=== PATIENT | male | born 1975 | race American Indian/Alaskan Native ===

== ENCOUNTER 2017-08-27 23:29 | Emergency (ER) | payer SELFPAY ==
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
[2017-08-27 23:48] VITALS: BP 159/83
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
[2017-08-28] MEDS ORDERED: ZOFRAN IV ONE (00:36)
[2017-08-28] MEDS ORDERED: MORPHINE IV ONE (00:36)
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
== END 2017-08-28 02:31 | disposition home or self-care (01) ==
LOC: ED 23:29
DX: S01.81XA Laceration without foreign body of other part of head, initial encounter (principal); S00.83XA Contusion of other part of head, initial encounter; V49.49XA Driver injured in collision with other motor vehicles in traffic accident, initial encounter; Y93.89 Activity, other specified; Y92.89 Other specified places as the place of occurrence of the external cause; Y99.8 Other external cause status
CPT/HCPCS: 12002; 70450; 70486; 72125; 96374; 96375; 99284; J2270; J2405

== ENCOUNTER 2020-04-27 20:17 | Inpatient (IN) | payer OTHER ==
[2020-04-27] MEDS ORDERED: ACETAMINOPHEN 325 MG TAB ONE (20:29)
[2020-04-27] MEDS ORDERED: ACETAMINOPHEN 325 MG TAB PO ONE (20:30)
--- NOTE | 2020-04-27 20:31 | Event Note ---
ED Screening Note ED Screening Note: COVID 19 positive on apr 19 states began having chills and fever on 04/18/2020 no cough no SOB no CP no n/v/d +generalized body aches no abd pain PMHx none no allergies to meds non smoker no recent travel This initial assessment/diagnostic orders/clinical plan/treatment(s) is/are subject to change based on patients health status, clinical progression and re- assessment by fellow clinical providers in the ED. Further treatment and workup at subsequent clinical providers discretion. Patient/guardian urged not to elope from the ED as their condition may be serious if not clinically assessed and managed. Initial orders include: labs, CXR tylenol given
--- NOTE | 2020-04-27 20:54 | XRay Report ---
CHEST 2 VIEWS, 04/27/2020 8:45 PM INDICATION: Cough. Shortness of breath. COMPARISON: None FINDINGS: Support devices: None. Heart: The cardiac silhouette is normal in size. Lungs/pleura: There are patchy bilateral opacities within the mid and lower lung zones. Additional findings: No significant acute abnormality. IMPRESSION: 1. Patchy bilateral pulmonary opacities. Atypical infectious process should be considered. Signer Name: Sadaf Clay MD Signed: 04/27/2020 8:49 PM Workstation Name: [id number]
[2020-04-27] MEDS ORDERED: SODIUM CHLORIDE 0.9% 1000 ML IV SOLN IV ONE (20:55)
--- NOTE | 2020-04-27 21:05 | Emergency Department Report ---
ED Fever HPI - General Chief Complaint: Fever Stated Complaint: POS COVID/CHILLS/FEVER PUI?: Yes Time Seen by Provider: 04/27/20 20:45 Source: patient Exam Limitations: no limitations - History of Present Illness Initial Comments: Patient is a 45-year-old male that presents emergency room with complaints of cough, chills, body aches, fever, difficulty breathing and shortness of breath. Patient states his symptoms started April 19, 2020. Patient states he tested positive for COVID-19 on April 22, 2020. Patient stated he also feels fatigued. Patient states his shortness of breath is better with rest and worse with exertion. Patient states he has had fever since April 19 and will go down with Tylenol but come right back. Patient states he has had a decrease in his appetite. Patient denies nausea and vomiting. Patient denies diarrhea. Patient denies loss of smell. Patient denies loss of taste. Patient denies chest pain. Patient states he has no past medical history except for his taking a testosterone supplement. Patient denies international travel. 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 denies: wheezing Cardiovascular: denies: chest pain, palpitations Endocrine: no symptoms reported Gastrointestinal: denies: abdominal pain, nausea, diarrhea Genitourinary: denies: urgency, dysuria Musculoskeletal: denies: back pain, joint swelling, arthralgia Skin: denies: rash, lesions Neurological: denies: headache, weakness, paresthesias Psychiatric: denies: anxiety, depression Hematological/Lymphatic: denies: easy bleeding, easy bruising ED Past Medical Hx - Past Medical History Previous Medical History?: Yes Additional medical history: Low testosterone - Surgical History Past Surgical History?: Yes Additional Surgical History: left mcl reconstruction - Family History Family history: no significant - Social History Smoking Status: Never Smoker Substance Use Type: None - Medications Home Medications: Home Medications Medication Instructions Recorded Confirmed Last Taken Type Ciprofloxacin HCl [Cipro] 500 mg PO Q12H #20 tab 04/02/13 Unknown Rx Cyclobenzaprine [Flexeril 10 MG 10 mg PO TID PRN #30 tablet 08/28/17 Unknown Rx TAB] HYDROcodone/APAP 5-325 [[place] 1 each PO Q6HR PRN #20 tablet 08/28/17 Unknown Rx 5/325] Ibuprofen [Motrin 800 MG tab] 800 mg PO TID PRN #40 tablet 08/28/17 Unknown Rx ED Physical Exam - General Limitations: No Limitations General appearance: alert, in no apparent distress - Head Head exam: Present: atraumatic, normocephalic - Eye Eye exam: Present: normal appearance - ENT ENT exam: Present: mucous membranes moist - Neck Neck exam: Present: normal inspection - Respiratory Respiratory exam: Present: normal lung sounds bilaterally. Absent: respiratory distress - Cardiovascular Cardiovascular Exam: Present: regular rate, normal rhythm. Absent: systolic murmur, diastolic murmur, rubs, gallop - GI/Abdominal GI/Abdominal exam: Present: soft, normal bowel sounds - Rectal Rectal exam: Present: deferred - Extremities Exam Extremities exam: Present: normal inspection - Back Exam Back exam: Present: normal inspection - Neurological Exam Neurological exam: Present: alert, oriented X3 - Psychiatric Psychiatric exam: Present: normal affect, normal mood - Skin Skin exam: Present: warm, dry, intact, normal color. Absent: rash ED Course Vital Signs 04/27/20 04/27/20 04/27/20 20:22 21:00 22:27 Temperature 100.5 F H Pulse Rate 127 H 113 H 91 H Respiratory 16 19 17 Rate Blood Pressure 131/86 Blood Pressure 131/80 133/80 [Left] O2 Sat by Pulse 94 93 94 Oximetry - Reevaluation(s) Reevaluation #1: Patient is evaluation done. I reevaluated the patient and ambulated the patient with a pulse ox. Patient's oxygen saturation stayed between 90 and 93. Patient's resting oxygen saturation is 93. 04/27/20 21:08 Reevaluation #2: Patient's oxygen has decreased. Patient placed on oxygen. Patient's on 2 L saturation is 95% 04/27/20 21:35 Reevaluation #3: I discussed all results with patient. I discussed plan of care with patient. Patient agrees with plan of care and admission. Patient to be admitted to the hospitalist service. 04/27/20 21:50 - Consultations Consultation #1: Hospitalist consulted for admission. Hospitalist to admit patient. 04/27/20 21:50 ED Medical Decision Making - Lab Data Result diagrams: 04/27/20 20:55 04/27/20 21:11 - Radiology Data Radiology results: report reviewed, image reviewed CHEST 2 VIEWS, 04/27/2020 8:45 PM INDICATION: Cough. Shortness of breath. COMPARISON: None FINDINGS: Support devices: None. Heart: The cardiac silhouette is normal in size. Lungs/pleura: There are patchy bilateral opacities within the mid and lower lung zones. Additional findings: No significant acute abnormality. IMPRESSION: 1. Patchy bilateral pulmonary opacities. Atypical infectious process should be considered. - Medical Decision Making Patient is a 45-year-old male that presents emergency room with complaints of shortness of breath, cough, fever, chills, body aches for over 1 week. Patient was diagnosed with COVID-19 on April 22, 2020. An ambulatory sat was done in the ER upon initial evaluation and patient oxygen level ranged between 90 and 93. Later on in the ER stay the patient's oxygen actually dropped more and patient required 2 L of oxygen to maintain a sat above 93. Patient had a chest x-ray which shows bilateral pneumonia consistent with COVID-19. Patient had labs which essentially unremarkable except for elevated Covid panel and inflammatory markers. ID consulted for management of PUI and Covid. Patient will be admitted to the hospital service for further evaluation and treatment. - Differential Diagnosis Covid, fever, shortness of breath, hypoxia, respiratory failure, Critical Care Time: Yes Critical care time in (mins) excluding proc time.: 35 Critical care attestation.: If time is entered above; I have spent that time in minutes in the direct care of this critically ill patient, excluding procedure time. Critical Care Time: 35 minutes ED Disposition Clinical Impression: COVID-19, Hypoxia, SOB (shortness of breath) Pneumonia Qualifiers: Pneumonia type: due to unspecified organism Laterality: bilateral Lung location: unspecified part of lung Qualified Code(s): J18.9 - Pneumonia, unspecified organism Respiratory failure Qualifiers: Chronicity: acute Respiratory failure complication: hypoxia Qualified Code(s): J96.01 - Acute respiratory failure with hypoxia Disposition: 09 OP ADMIT IP TO THIS HOSP Is pt being admited?: Yes Does the pt Need Aspirin: No Condition: Critical Instructions: Bacterial Pneumonia (ED) Time of Disposition: 22:20
[2020-04-27] MEDS ORDERED: cefTRIAXone/NS 2 GM/100 ML 2 GM/100 ML BAG IV ONE (21:12)
[2020-04-27] MEDS ORDERED: dexAMETHasone 4 MG/ML VIAL IV ONE (21:12)
[2020-04-27 21:17] LABS: Basophils # (Auto) 0.1 K/mm3 (0.0-0.1); Basophils % (Auto) 0.5 % (0.0-1.8); Hematocrit 52.6 % (35.5-45.6); Hemoglobin 17.9 gm/dl (11.8-15.2); Lymphocytes # (Auto) 0.9 K/mm3 (1.2-5.4); Lymphocytes % (Auto) 8.7 % (13.4-35.0); Mean Corpuscular HGB Conc 34 % (32-34); Mean Corpuscular Volume 80 fl (84-94); Monocytes # (Auto) 0.7 K/mm3 (0.0-0.8); Monocytes % (Auto) 6.1 % (0.0-7.3); Platelet Count 283 K/mm3 (140-440); Red Blood Count 6.58 M/mm3 (3.65-5.03); Red Cell Distribution Width 13.4 % (13.2-15.2)
[2020-04-27 21:35] LABS: Albumin 3.8 g/dL (3.9-5); Calcium 8.5 mg/dL (8.4-10.2)
[2020-04-27] MEDS ORDERED: AZITHROMYCIN 500 MG in SODIUM CHLORIDE 0.9% 250ML 250 ML IV ONE (21:42)
[2020-04-27 21:56] LABS: C-Reactive Protein 9.6 mg/dL (0.00-1.30)
[2020-04-27] MEDS ORDERED: ACETAMINOPHEN 325 MG TAB PO PRN (22:34)
[2020-04-27] MEDS ORDERED: MAGNESIUM HYDROXIDE (MOM) ORAL LIQD UDC PO PRN (22:34)
[2020-04-27] MEDS ORDERED: ONDANSETRON 4 MG/2 ML INJ IV PRN (22:34)
[2020-04-27] MEDS ORDERED: MORPHINE 2 MG/1 ML INJ IV PRN (22:34)
[2020-04-27] MEDS ORDERED: SODIUM CHLORIDE 0.9% 1000 ML 1,000 ML IV SCH (22:45)
--- NOTE | 2020-04-27 22:45 | History and Physical Report ---
History of Present Illness Date of examination: 04/27/20 Date of admission: 04/27/2020 Chief complaint: Cough Fever Shortness of Breath History of present illness: 45-year-old male with no significant past medical history presents to the emergency room today complaining of cough, fever and chills, generalized body aches and pain and difficulty breathing. Symptoms have been ongoing for about 10 days. Patient indicates that he tested positive for COVID-19 on April 22, 2020 and since then he has been feeling fatigued and has been having intermittent fever. He has taken some Tylenol which helps with the fever for a brief period of time. He has had decreased appetite but denies any nausea vomiting and no diarrhea denies any loss of smell, no abdominal pain. Patient denies any sick contacts and no recent travel. Patient denies any contact with anyone with COVID-19. Upon arrival in the emergency room patient was hypoxic. Evaluation in the emergency room today chest x-ray shows bilateral infiltrates. Patient being admitted for pneumonia and will rule out COVID-19. Past History Past Medical History: other (Low testosterone) Past Surgical History: Other (Left MCL reconstruction) Social history: no significant social history Family history: no significant family history Medications and Allergies Allergies Allergy/AdvReac Type Severity Reaction Status Date / Time No Known Allergies Allergy Verified 08/27/17 23:45 Home Medications Medication Instructions Recorded Confirmed Last Taken Type Ciprofloxacin HCl [Cipro] 500 mg PO Q12H #20 tab 04/02/13 Unknown Rx Cyclobenzaprine [Flexeril 10 MG 10 mg PO TID PRN #30 tablet 08/28/17 Unknown Rx TAB] HYDROcodone/APAP 5-325 [[place] 1 each PO Q6HR PRN #20 tablet 08/28/17 Unknown Rx 5/325] Ibuprofen [Motrin 800 MG tab] 800 mg PO TID PRN #40 tablet 08/28/17 Unknown Rx Active Meds: Active Medications Acetaminophen (Acetaminophen 325 Mg Tab) 650 mg PO Q4H PRN PRN Reason: Pain MILD(1-3)/Fever >100.5/MCKEON Enoxaparin Sodium (Enoxaparin 40 Mg/0.4 Ml Inj) 40 mg SUB-Q QDAY@2200 MATILDA; Protocol Azithromycin 500 mg/ Sodium (Chloride) 250 mls @ 250 mls/hr IV ONCE ONE; Protocol Stop: 04/27/20 22:41 Last Admin: 04/27/20 22:15 Dose: 250 mls/hr Documented by: Sodium Chloride (Nacl 0.9% 1000 Ml) 1,000 mls @ 75 mls/hr IV DIRECT MATILDA Ceftriaxone Sodium (Rocephin/Ns 2 Gm/100 Ml) 2 gm in 100 mls @ 200 mls/hr IV Q24H MATILDA; Protocol Azithromycin 500 mg/ Sodium (Chloride) 250 mls @ 250 mls/hr IV Q24H MATILDA; Protocol Sodium Chloride (Nacl 0.9% 1000 Ml) 1,000 mls @ 75 mls/hr IV DIRECT MATILDA Magnesium Hydroxide (Magnesium Hydroxide (Mom) Oral Liqd Udc) 30 ml PO Q4H PRN PRN Reason: Constipation Morphine Sulfate (Morphine 2 Mg/1 Ml Inj) 2 mg IV Q4H PRN PRN Reason: Pain, Moderate (4-6) Ondansetron HCl (Ondansetron 4 Mg/2 Ml Inj) 4 mg IV Q8H PRN PRN Reason: Nausea And Vomiting Sodium Chloride (Sodium Chloride 0.9% 10 Ml Flush Syringe) 10 ml IV BID MATILDA Sodium Chloride (Sodium Chloride 0.9% 10 Ml Flush Syringe) 10 ml IV PRN PRN PRN Reason: LINE FLUSH Review of Systems Constitutional: fever, chills, malaise Ears, nose, mouth and throat: no nasal congestion, no sore throat Cardiovascular: no chest pain, no palpitations Respiratory: cough, shortness of breath Gastrointestinal: no abdominal pain, no nausea, no vomiting, no diarrhea Genitourinary Male: no dysuria, no hematuria, no nocturia Musculoskeletal: no neck pain, no low back pain Integumentary: no rash, no pruritis Neurological: no headaches, no confusion Psychiatric: no anxiety, no depression Exam - Constitutional Vitals: Temp Pulse Resp BP Pulse Ox 100.5 F H 91 H 17 133/80 94 04/27/20 20:22 04/27/20 22:27 04/27/20 22:27 04/27/20 22:27 04/27/20 22:27 General appearance: Present: no acute distress, well-nourished - EENT Eyes: Present: PERRL, EOM intact. Absent: scleral icterus ENT: hearing intact, clear oral mucosa, dentition normal - Neck Neck: Present: supple, normal ROM - Respiratory Respiratory effort: normal Respiratory: bilateral: diminished - Cardiovascular Rhythm: regular Heart Sounds: Present: S1 & S2. Absent: gallop, systolic murmur, diastolic murmur, rub - Extremities Extremities: no ischemia, pulses intact, pulses symmetrical, No edema, Full ROM Peripheral Pulses: within normal limits - Abdominal General gastrointestinal: Present: soft, non-tender, non-distended, normal bowel sounds. Absent: mass - Integumentary Integumentary: Present: clear, warm, dry. Absent: rash - Musculoskeletal Musculoskeletal: strength equal bilaterally - Psychiatric Psychiatric: appropriate mood/affect, intact judgment & insight, memory intact, cooperative - Neurologic Neurologic: CNII-XII intact, no focal deficits, moves all extremities Results - Labs CBC & Chem 7: 04/27/20 20:55 04/27/20 21:11 Labs: Abnormal lab results 04/27/20 04/27/20 04/27/20 Range/Units 20:55 20:55 21:11 RBC 6.58 H (3.65-5.03) M/mm3 Hgb 17.9 H (11.8-15.2) gm/dl Hct 52.6 H (35.5-45.6) % MCV 80 L (84-94) fl MCH 27 L (28-32) pg Lymph % (Auto) 8.7 L (13.4-35.0) % Lymph # (Auto) 0.9 L (1.2-5.4) K/mm3 Seg Neutrophils % 84.7 H (40.0-70.0) % Seg Neutrophils # 9.2 H (1.8-7.7) K/mm3 D-Dimer 647.16 H (0-234) ng/mlDDU Sodium 127 L (137-145) mmol/L Chloride 94.2 L (98-107) mmol/L Carbon Dioxide 19 L (22-30) mmol/L Creatinine 1.7 H (0.8-1.3) mg/dL Glucose 119 H (75-100) mg/dL AST 102 H (5-40) units/L ALT 80 H (7-56) units/L Lactate Dehydrogenase (91-180) units/L C-Reactive Protein (0.00-1.30) mg/dL Albumin 3.8 L (3.9-5) g/dL 04/27/20 Range/Units 21:11 RBC (3.65-5.03) M/mm3 Hgb (11.8-15.2) gm/dl Hct (35.5-45.6) % MCV (84-94) fl MCH (28-32) pg Lymph % (Auto) (13.4-35.0) % Lymph # (Auto) (1.2-5.4) K/mm3 Seg Neutrophils % (40.0-70.0) % Seg Neutrophils # (1.8-7.7) K/mm3 D-Dimer (0-234) ng/mlDDU Sodium (137-145) mmol/L Chloride (98-107) mmol/L Carbon Dioxide (22-30) mmol/L Creatinine (0.8-1.3) mg/dL Glucose 117 H (75-100) mg/dL AST (5-40) units/L ALT (7-56) units/L Lactate Dehydrogenase 923 H (91-180) units/L C-Reactive Protein 9.60 H (0.00-1.30) mg/dL Albumin (3.9-5) g/dL Assessment and Plan - Patient Problems (1) Pneumonia Current Visit: Yes Status: Acute Qualifiers: Pneumonia type: due to unspecified organism Laterality: bilateral Lung location: unspecified part of lung Qualified Code(s): J18.9 - Pneumonia, unspecified organism Plan to address problem: Patient placed on empiric IV antibiotics. We await culture results. (2) COVID-19 Current Visit: Yes Status: Acute Plan to address problem: Patient placed on isolation precautions. Consult placed to infectious disease for evaluation. Meanwhile patient placed on IV steroid. (3) Hypoxia Current Visit: Yes Status: Acute Plan to address problem: Possibly secondary to the pneumonia. We will keep O2 saturation greater or equal to 94%. (4) DVT prophylaxis Current Visit: Yes Status: Acute Plan to address problem: Patient placed on subcutaneous Lovenox. (5) Full code status Current Visit: Yes Status: Acute Plan to address problem: Patient is a full code.
[2020-04-28 00:22] LABS: Bilirubin,Urine NEG (Negative); Blood,Urine SM (Negative); Color,Urine Yellow (Yellow); Urobilinogen,Urine < 2.0 mg/dL (<2.0)
[2020-04-28 05:52] LABS: Basophils % (Auto) 0.1 % (0.0-1.8); Hematocrit 52.5 % (35.5-45.6); Hemoglobin 17.4 gm/dl (11.8-15.2); Lymphocytes # (Auto) 0.6 K/mm3 (1.2-5.4); Lymphocytes % (Auto) 7.3 % (13.4-35.0); Mean Corpuscular HGB Conc 33 % (32-34); Mean Corpuscular Volume 82 fl (84-94); Monocytes # (Auto) 0.3 K/mm3 (0.0-0.8); Monocytes % (Auto) 3.4 % (0.0-7.3); Red Blood Count 6.43 M/mm3 (3.65-5.03); Red Cell Distribution Width 13.7 % (13.2-15.2)
[2020-04-28 05:57] LABS: Platelet Count 266 K/mm3 (140-440)
[2020-04-28 05:59] LABS: INR 1.46 (0.87-1.13)
[2020-04-28] MEDS: SODIUM CHLORIDE 0.9% 1000 ML 1,000 ML IV SCH (11:57)
[2020-04-28] MEDS: cefTRIAXone/NS 2 GM/100 ML 2 GM/100 ML BAG IV SCH (11:57)
[2020-04-28] MEDS: dexAMETHasone 4 MG/ML VIAL IV SCH (12:00)
--- NOTE | 2020-04-28 12:38 | Progress Note ---
Assessment and Plan Assessment and plan: 45-year-old male with no significant past medical history presents to the emergency room today complaining of cough, fever and chills, generalized body aches and pain and difficulty breathing. Symptoms have been ongoing for about 10 days. Patient indicates that he tested positive for COVID-19 on April 22, 2020 and since then he has been feeling fatigued and has been having intermittent fever. He has taken some Tylenol which helps with the fever for a brief period of time. He has had decreased appetite but denies any nausea vomiting and no diarrhea denies any loss of smell, no abdominal pain. Patient denies any sick contacts and no recent travel. Patient denies any contact with anyone with COVID-19. Upon arrival in the emergency room patient was hypoxic. Evaluation in the emergency room today chest x-ray shows bilateral infiltrates. Patient being admitted for pneumonia and will rule out COVID-19. 04/28: Chest x-ray read by me shows extensive bilateral infiltrates. Patient reports clinical improvement. He reports that he was tested positive as documented in the H&P. Will await ID evaluation for possible remdesivir. Obtain pre and post oxygen saturation. Denies any underlying medical condition. Will initiate some vitamins for supplementation and immune system use. Monitor inflammatory markers (1) Pneumonia Current Visit: Yes Status: Acute Qualifiers: Pneumonia type: due to unspecified organism Laterality: bilateral Lung location: unspecified part of lung Qualified Code(s): J18.9 - Pneumonia, unspecified organism Plan to address problem: Patient placed on empiric IV antibiotics. We await culture results. (2) COVID-19 Current Visit: Yes Status: Acute Plan to address problem: Patient placed on isolation precautions. Consult placed to infectious disease for evaluation. Meanwhile patient placed on IV steroid. (3) Hypoxia Current Visit: Yes Status: Acute Plan to address problem: Possibly secondary to the pneumonia. We will keep O2 saturation greater or equal to 94%. (4) DVT prophylaxis Current Visit: Yes Status: Acute Plan to address problem: Patient placed on subcutaneous Lovenox. (5) Full code status Current Visit: Yes Status: Acute Plan to address problem: Patient is a full code. History Interval history: Patient seen and examined reports some improvement. Thinks that he may have contracted this to family. Hospitalist Physical - Physical exam Narrative exam: VITAL SIGNS: Reviewed. GENERAL: The patient appears normally developed, mild lethargy. Vital signs as documented. HEAD: No signs of head trauma. EYES: Pupils are equal. Extraocular motions intact. EARS: Hearing grossly intact. MOUTH: Oropharynx is normal. NECK: No adenopathy, no JVD. CHEST: Chest with diminished breath sounds bilaterally. No wheezes, rales, or rhonchi. CARDIAC: Regular rate and rhythm. S1 and S2, without murmurs, gallops, or rubs. VASCULAR: No Edema. Peripheral pulses normal and equal in all extremities. ABDOMEN: Soft, non tender and non distended. No rebound or guarding, and no masses palpated. Bowel Sounds normal. MUSCULOSKELETAL: Good range of motion of all major joints. Extremities without clubbing, cyanosis or edema. NEUROLOGIC EXAM: Alert and oriented x 3 No focal sensory or strength deficits. Speech normal. Follows commands. PSYCHIATRIC: Mood normal. SKIN: detail exam as documented in skin assessment - Constitutional Vitals: Temp Pulse Resp BP Pulse Ox 97.8 F 89 20 124/69 92 04/28/20 00:29 04/28/20 05:02 04/28/20 05:02 04/28/20 05:02 04/28/20 05:02 General appearance: Present: no acute distress, well-nourished Results - Labs CBC & Chem 7: 04/28/20 05:19 04/28/20 05:19 Labs: Laboratory Last Values WBC 8.8 K/mm3 (4.5-11.0) 04/28/20 05:19 RBC 6.43 M/mm3 (3.65-5.03) H 04/28/20 05:19 Hgb 17.4 gm/dl (11.8-15.2) H 04/28/20 05:19 Hct 52.5 % (35.5-45.6) H 04/28/20 05:19 MCV 82 fl (84-94) L 04/28/20 05:19 MCH 27 pg (28-32) L 04/28/20 05:19 MCHC 33 % (32-34) 04/28/20 05:19 RDW 13.7 % (13.2-15.2) 04/28/20 05:19 Plt Count 266 K/mm3 (140-440) 04/28/20 05:19 Lymph % (Auto) 7.3 % (13.4-35.0) L 04/28/20 05:19 [place] % (Auto) 3.4 % (0.0-7.3) 04/28/20 05:19 Eos % (Auto) 0.0 % (0.0-4.3) 04/28/20 05:19 Baso % (Auto) 0.1 % (0.0-1.8) 04/28/20 05:19 Lymph # (Auto) 0.6 K/mm3 (1.2-5.4) L 04/28/20 05:19 [place] # (Auto) 0.3 K/mm3 (0.0-0.8) 04/28/20 05:19 Eos # (Auto) 0.0 K/mm3 (0.0-0.4) 04/28/20 05:19 Baso # (Auto) 0.0 K/mm3 (0.0-0.1) 04/28/20 05:19 Seg Neutrophils % 89.2 % (40.0-70.0) H 04/28/20 05:19 Seg Neutrophils # 7.8 K/mm3 (1.8-7.7) H 04/28/20 05:19 PT 17.7 Sec. (12.2-14.9) H 04/28/20 05:19 INR 1.46 (0.87-1.13) H 04/28/20 05:19 D-Dimer 647.16 ng/mlDDU (0-234) H 04/27/20 21:11 Sodium 138 mmol/L (137-145) D 04/28/20 05:19 Potassium 5.8 mmol/L (3.6-5.0) H D 04/28/20 05:19 Chloride 102.8 mmol/L (98-107) 04/28/20 05:19 Carbon Dioxide 26 mmol/L (22-30) D 04/28/20 05:19 Anion Gap 15 mmol/L 04/28/20 05:19 BUN 17 mg/dL (9-20) 04/28/20 05:19 Creatinine 1.7 mg/dL (0.8-1.3) H 04/28/20 05:19 Estimated GFR 53 ml/min 04/28/20 05:19 BUN/Creatinine Ratio 10 % 04/28/20 05:19 Glucose 143 mg/dL (75-100) H 04/28/20 05:19 Lactic Acid 0.90 mmol/L (0.7-2.0) 04/27/20 23:37 Calcium 8.0 mg/dL (8.4-10.2) L 04/28/20 05:19 Ferritin 2654.0 ng/mL (30.0-300.0) H 04/27/20 21:11 Total Bilirubin 1.10 mg/dL (0.1-1.2) 04/27/20 20:55 AST 102 units/L (5-40) H 04/27/20 20:55 ALT 80 units/L (7-56) H 04/27/20 20:55 Alkaline Phosphatase 45 units/L (35-129) 04/27/20 20:55 Lactate Dehydrogenase 923 units/L (91-180) H 04/27/20 21:11 C-Reactive Protein 9.60 mg/dL (0.00-1.30) H 04/27/20 21:11 Total Protein 6.3 g/dL (6.3-8.2) 04/27/20 20:55 Albumin 3.8 g/dL (3.9-5) L 04/27/20 20:55 Albumin/Globulin Ratio 1.5 % 04/27/20 20:55 Urine Color Yellow (Yellow) 04/27/20 23:36 Urine Turbidity Clear (Clear) 04/27/20 23:36 Urine pH 6.0 (5.0-7.0) 04/27/20 23:36 Ur Specific [place] 1.006 (1.003-1.030) 04/27/20 23:36 Urine Protein 100 mg/dl mg/dL (Negative) 04/27/20 23:36 Urine Glucose (UA) Neg mg/dL (Negative) 04/27/20 23:36 Urine Ketones Neg mg/dL (Negative) 04/27/20 23:36 Urine Blood Sm (Negative) 04/27/20 23:36 Urine Nitrite Neg (Negative) 04/27/20 23:36 Urine Bilirubin Neg (Negative) 04/27/20 23:36 Urine Urobilinogen < 2.0 mg/dL (<2.0) 04/27/20 23:36 Ur Leukocyte Esterase Neg (Negative) 04/27/20 23:36 Urine WBC (Auto) 2.0 /HPF (0.0-6.0) 04/27/20 23:36 Urine RBC (Auto) 2.0 /HPF (0.0-6.0) 04/27/20 23:36 Microbiology: Microbiology 04/27/20 21:15 Peripheral/Venous Blood Culture - Preliminary Culture in Progress 04/27/20 21:11 Peripheral/Venous Blood Culture - Preliminary Culture in Progress Espinosa/IV: Voiding Method Urinal IV Catheter Type [Right INT / Saline Lock Forearm] Active Medications - Current Medications Current Medications: Generic Name Dose Route Start Last Admin Trade Name Freq PRN Reason Stop Dose Admin Acetaminophen 650 mg 04/27/20 22:34 Acetaminophen 325 Mg Tab PO Q4H PRN Pain MILD(1-3)/Fever >100.5/MCKEON Dexamethasone 6 mg 04/28/20 10:00 04/28/20 12:00 Dexamethasone 4 Mg/Ml Vial IV 05/06/20 10:01 6 mg Q24HR MATILDA Administration Enoxaparin Sodium 40 mg 04/28/20 22:00 Enoxaparin 40 Mg/0.4 Ml Inj SUB-Q QDAY@2200 MATILDA Protocol Sodium Chloride 1,000 mls @ 75 mls/hr 04/27/20 22:45 04/28/20 11:57 Nacl 0.9% 1000 Ml IV 75 mls/hr DIRECT MATILDA Administration Ceftriaxone Sodium 2 gm in 100 mls @ 200 mls/hr 04/28/20 10:00 04/28/20 11:57 Rocephin/Ns 2 Gm/100 Ml IV 200 mls/hr Q24HR MATILDA Administration Protocol Azithromycin 500 mg/ Sodium 250 mls @ 250 mls/hr 04/28/20 10:00 Chloride IV 05/01/20 10:59 Q24HR MATILDA Protocol Magnesium Hydroxide 30 ml 04/27/20 22:34 Magnesium Hydroxide (Mom) Oral Liqd Udc PO Q4H PRN Constipation Morphine Sulfate 2 mg 04/27/20 22:34 Morphine 2 Mg/1 Ml Inj IV Q4H PRN Pain, Moderate (4-6) Ondansetron HCl 4 mg 04/27/20 22:34 Ondansetron 4 Mg/2 Ml Inj IV Q8H PRN Nausea And Vomiting Sodium Chloride 10 ml 04/28/20 10:00 04/28/20 12:01 Sodium Chloride 0.9% 10 Ml Flush Syringe IV 10 ml BID MATILDA Administration Sodium Chloride 10 ml 04/27/20 22:34 Sodium Chloride 0.9% 10 Ml Flush Syringe IV PRN PRN LINE FLUSH
[2020-04-28] MEDS ORDERED: SODIUM POLYSTYRENE 15 GM/60 ML ORAL LIQD PO ONE ×2 (13:00→17:00)
--- NOTE | 2020-04-28 15:16 | Consultation ---
History of Present Illness - Reason for Consult Consult date: 04/28/20 COVID Requesting physician: JURGEN CARRERA - History of Present Illness The patient is a 45-year-old male with no significant past medical history admitted to the hospital with cough, shortness of breath and fever. He tested positive for COVID-19 as an outpatient. Due to worsening symptoms, he came to the hospital. Chest x-ray showed bilateral pneumonia. Patient with low-grade fever here, hypoxic requiring supplemental oxygen by nasal cannula at 3 L/min. Labs showed transaminitis, elevated ferritin, elevated CRP, LDH 923, D-dimer 647. Review of Systems: reviewed in the chart, unable to obtain, minimize risk of transmission Past History Past Medical History: other (Low testosterone) Past Surgical History: Other (Left MCL reconstruction) Social history: no significant social history Family history: no significant family history Medications and Allergies Allergies Allergy/AdvReac Type Severity Reaction Status Date / Time No Known Allergies Allergy Verified 08/27/17 23:45 Home Medications Medication Instructions Recorded Confirmed Last Taken Type Ciprofloxacin HCl [Cipro] 500 mg PO Q12H #20 tab 04/02/13 Unknown Rx Cyclobenzaprine [Flexeril 10 MG 10 mg PO TID PRN #30 tablet 08/28/17 Unknown Rx TAB] HYDROcodone/APAP 5-325 [[place] 1 each PO Q6HR PRN #20 tablet 08/28/17 Unknown Rx 5/325] Ibuprofen [Motrin 800 MG tab] 800 mg PO TID PRN #40 tablet 08/28/17 Unknown Rx Active Meds: Active Medications Acetaminophen (Acetaminophen 325 Mg Tab) 650 mg PO Q4H PRN PRN Reason: Pain MILD(1-3)/Fever >100.5/MCKEON Ascorbic Acid (Ascorbic Acid 500 Mg Tab) 1,000 mg PO BID MATILDA Cholecalciferol (Cholecalciferol (Vit D3) 5,000 Unit Tab) 5,000 unit PO DAILY MATILDA Dexamethasone (Dexamethasone 4 Mg/Ml Vial) 6 mg IV Q24HR MATILDA Stop: 05/06/20 10:01 Last Admin: 04/28/20 12:00 Dose: 6 mg Documented by: Enoxaparin Sodium (Enoxaparin 40 Mg/0.4 Ml Inj) 40 mg SUB-Q QDAY@2200 MATILDA; Protocol Sodium Chloride (Nacl 0.9% 1000 Ml) 1,000 mls @ 75 mls/hr IV DIRECT MATILDA Last Admin: 04/28/20 11:57 Dose: 75 mls/hr Documented by: Ceftriaxone Sodium (Rocephin/Ns 2 Gm/100 Ml) 2 gm in 100 mls @ 200 mls/hr IV Q24HR MATILDA; Protocol Last Admin: 04/28/20 11:57 Dose: 200 mls/hr Documented by: Azithromycin 500 mg/ Sodium (Chloride) 250 mls @ 250 mls/hr IV Q24HR MATILDA; Protocol Stop: 05/01/20 10:59 Magnesium Hydroxide (Magnesium Hydroxide (Mom) Oral Liqd Udc) 30 ml PO Q4H PRN PRN Reason: Constipation Morphine Sulfate (Morphine 2 Mg/1 Ml Inj) 2 mg IV Q4H PRN PRN Reason: Pain, Moderate (4-6) Ondansetron HCl (Ondansetron 4 Mg/2 Ml Inj) 4 mg IV Q8H PRN PRN Reason: Nausea And Vomiting Sodium Chloride (Sodium Chloride 0.9% 10 Ml Flush Syringe) 10 ml IV BID MATILDA Last Admin: 04/28/20 12:01 Dose: 10 ml Documented by: Sodium Chloride (Sodium Chloride 0.9% 10 Ml Flush Syringe) 10 ml IV PRN PRN PRN Reason: LINE FLUSH Zinc Sulfate (Zinc Sulfate 220 Mg Cap) 220 mg PO QDAY MATILDA Physical Examination - Physical Exam Narrative exam: Physical Exam (reviewed in chart to minimize risk of transmission) Constitutional: deferred Head, Ears, Nose: deferred Eyes: deferred Neck: deferred Oral: deferred Cardiovascular: deferred Respiratory: deferred GI: deferred Musculoskeletal: deferred Skin: deferred Hem/Lymphatic: deferred Psych: deferred Neurological: deferred - Constitutional Vitals: Vital Signs Temp Pulse Resp BP Pulse Ox 98.4 F 97 H 22 126/86 94 04/28/20 11:06 04/28/20 11:06 04/28/20 11:06 04/28/20 11:06 04/28/20 11:06 Temperature -Last 24 Hours Temperature 98.4 F Temperature 97.8 F Temperature 100.5 F Results - Labs CBC & Chem 7: 04/28/20 05:19 04/28/20 05:19 Labs: Abnormal lab results 04/27/20 04/27/20 04/27/20 Range/Units 20:55 20:55 21:11 RBC 6.58 H (3.65-5.03) M/mm3 Hgb 17.9 H (11.8-15.2) gm/dl Hct 52.6 H (35.5-45.6) % MCV 80 L (84-94) fl MCH 27 L (28-32) pg Lymph % (Auto) 8.7 L (13.4-35.0) % Lymph # (Auto) 0.9 L (1.2-5.4) K/mm3 Seg Neutrophils % 84.7 H (40.0-70.0) % Seg Neutrophils # 9.2 H (1.8-7.7) K/mm3 PT (12.2-14.9) Sec. INR (0.87-1.13) D-Dimer 647.16 H (0-234) ng/mlDDU Sodium 127 L (137-145) mmol/L Potassium (3.6-5.0) mmol/L Chloride 94.2 L (98-107) mmol/L Carbon Dioxide 19 L (22-30) mmol/L Creatinine 1.7 H (0.8-1.3) mg/dL Glucose 119 H (75-100) mg/dL Calcium (8.4-10.2) mg/dL Ferritin (30.0-300.0) ng/mL AST 102 H (5-40) units/L ALT 80 H (7-56) units/L Lactate Dehydrogenase (91-180) units/L C-Reactive Protein (0.00-1.30) mg/dL Albumin 3.8 L (3.9-5) g/dL 04/27/20 04/27/20 04/28/20 Range/Units 21:11 21:11 05:19 RBC 6.43 H (3.65-5.03) M/mm3 Hgb 17.4 H (11.8-15.2) gm/dl Hct 52.5 H (35.5-45.6) % MCV 82 L (84-94) fl MCH 27 L (28-32) pg Lymph % (Auto) 7.3 L (13.4-35.0) % Lymph # (Auto) 0.6 L (1.2-5.4) K/mm3 Seg Neutrophils % 89.2 H (40.0-70.0) % Seg Neutrophils # 7.8 H (1.8-7.7) K/mm3 PT (12.2-14.9) Sec. INR (0.87-1.13) D-Dimer (0-234) ng/mlDDU Sodium (137-145) mmol/L Potassium (3.6-5.0) mmol/L Chloride (98-107) mmol/L Carbon Dioxide (22-30) mmol/L Creatinine (0.8-1.3) mg/dL Glucose 117 H (75-100) mg/dL Calcium (8.4-10.2) mg/dL Ferritin 2654.0 H (30.0-300.0) ng/mL AST (5-40) units/L ALT (7-56) units/L Lactate Dehydrogenase 923 H (91-180) units/L C-Reactive Protein 9.60 H (0.00-1.30) mg/dL Albumin (3.9-5) g/dL 04/28/20 04/28/20 Range/Units 05:19 05:19 RBC (3.65-5.03) M/mm3 Hgb (11.8-15.2) gm/dl Hct (35.5-45.6) % MCV (84-94) fl MCH (28-32) pg Lymph % (Auto) (13.4-35.0) % Lymph # (Auto) (1.2-5.4) K/mm3 Seg Neutrophils % (40.0-70.0) % Seg Neutrophils # (1.8-7.7) K/mm3 PT 17.7 H (12.2-14.9) Sec. INR 1.46 H (0.87-1.13) D-Dimer (0-234) ng/mlDDU Sodium (137-145) mmol/L Potassium 5.8 H D (3.6-5.0) mmol/L Chloride (98-107) mmol/L Carbon Dioxide (22-30) mmol/L Creatinine 1.7 H (0.8-1.3) mg/dL Glucose 143 H (75-100) mg/dL Calcium 8.0 L (8.4-10.2) mg/dL Ferritin (30.0-300.0) ng/mL AST (5-40) units/L ALT (7-56) units/L Lactate Dehydrogenase (91-180) units/L C-Reactive Protein (0.00-1.30) mg/dL Albumin (3.9-5) g/dL - Imaging and Cardiology Chest x-ray: report reviewed, image reviewed (b/l pna) Assessment and Plan Cultures: SARS CoV2 PCR: Positive as outpatient. 04/27/2020 blood culture: In process A/P: 45-year-old male with no significant past medical history, tested positive for COVID-19 as an outpatient: #Bilateral pneumonia: Secondary to COVID-19. Elevated inflammatory markers. Patient tested positive as an outpatient. #Acute hypoxic respiratory failure: On 3 L/min #Transaminitis: Likely secondary to COVID-19 Recs: -IV/PO Dexamethasone 6 mg daily x 10 days -Follow-up procalcitonin, if normal, DC antibiotics -Remdesivir ordered due to hypoxia -prophylactic anticoagulation based on d-dimer per hospital protocol -trend ferritin, LDH, d-dimer, CRP every 2-3 days for risk stratification and to assess disease progression Ruel Rivera MD, FACP [facility] ([facility] O: [phone] F: [phone]
[2020-04-28] MEDS: ZINC SULFATE 220 MG CAP PO SCH (16:40)
[2020-04-28] MEDS: CHOLECALCIFEROL (VIT D3) 5,000 UNIT TAB PO SCH (16:41)
[2020-04-28] MEDS: ASCORBIC ACID 500 MG TAB PO SCH ×2 (16:41→22:24)
[2020-04-28] MEDS ORDERED: REMDESIVIR 100 MG VIAL IV ONE (17:00)
[2020-04-28] MEDS ORDERED: REMDESIVIR 200 MG in SODIUM CHLORIDE 0.9% 250ML 250 ML IV ONE (17:00)
[2020-04-28] MEDS: SODIUM CHLORIDE 0.9% 50 ML IVPB IV SCH (18:43)
[2020-04-28] MEDS: AZITHROMYCIN 500 MG in SODIUM CHLORIDE 0.9% 250ML 250 ML IV SCH (19:51)
[2020-04-28] MEDS: ENOXAPARIN 40 MG/0.4 ML INJ SUB-Q SCH (22:23)
[2020-04-29] MEDS: SODIUM CHLORIDE 0.9% 1000 ML 1,000 ML IV SCH (02:32)
[2020-04-29 06:46] LABS: BUN/Creatinine Ratio 15; Blood Urea Nitrogen 19 mg/dL (9-20); Hemolysis Index 15
[2020-04-29 06:53] LABS: Hemoglobin 15.6 gm/dl (11.8-15.2); Mean Corpuscular HGB Conc 33 % (32-34); Mean Corpuscular Volume 81 fl (84-94); Platelet Count 340 K/mm3 (140-440); Red Blood Count 5.84 M/mm3 (3.65-5.03); Red Cell Distribution Width 13.7 % (13.2-15.2)
[2020-04-29] MEDS: dexAMETHasone 4 MG/ML VIAL IV SCH (10:08)
[2020-04-29] MEDS: CHOLECALCIFEROL (VIT D3) 5,000 UNIT TAB PO SCH (10:08)
[2020-04-29] MEDS: ASCORBIC ACID 500 MG TAB PO SCH ×2 (10:08→21:53)
[2020-04-29] MEDS: ZINC SULFATE 220 MG CAP PO SCH (10:08)
[2020-04-29] MEDS: cefTRIAXone/NS 2 GM/100 ML 2 GM/100 ML BAG IV SCH (10:09)
[2020-04-29] MEDS: AZITHROMYCIN 500 MG in SODIUM CHLORIDE 0.9% 250ML 250 ML IV SCH (11:15)
--- NOTE | 2020-04-29 12:11 | Progress Note ---
Assessment and Plan Assessment and plan: 45-year-old male with no significant past medical history presents to the emergency room today complaining of cough, fever and chills, generalized body aches and pain and difficulty breathing. Symptoms have been ongoing for about 10 days. Patient indicates that he tested positive for COVID-19 on April 22, 2020 and since then he has been feeling fatigued and has been having intermittent fever. He has taken some Tylenol which helps with the fever for a brief period of time. He has had decreased appetite but denies any nausea vomiting and no diarrhea denies any loss of smell, no abdominal pain. Patient denies any sick contacts and no recent travel. Patient denies any contact with anyone with COVID-19. Upon arrival in the emergency room patient was hypoxic. Evaluation in the emergency room today chest x-ray shows bilateral infiltrates. Patient being admitted for pneumonia and will rule out COVID-19. 04/28: Chest x-ray read by me shows extensive bilateral infiltrates. Patient reports clinical improvement. He reports that he was tested positive as documented in the H&P. Will await ID evaluation for possible remdesivir. Obtain pre and post oxygen saturation. Denies any underlying medical condition. Will initiate some vitamins for supplementation and immune system use. Monitor inflammatory markers 04/29: Still awaiting Covid test. While he is improving would like to give it 1 more day. Will do home O2 evaluation as he still with exertional dyspnea. Continue steroids and remdesivir as prescribed. (1) Pneumonia Current Visit: Yes Status: Acute Qualifiers: Pneumonia type: due to unspecified organism Laterality: bilateral Lung location: unspecified part of lung Qualified Code(s): J18.9 - Pneumonia, unspecified organism Plan to address problem: Patient placed on empiric IV antibiotics. We await culture results. (2) COVID-19 Current Visit: Yes Status: Acute Plan to address problem: Patient placed on isolation precautions. Consult placed to infectious disease f or evaluation. Meanwhile patient placed on IV steroid. (3) Hypoxia Current Visit: Yes Status: Acute Plan to address problem: Possibly secondary to the pneumonia. We will keep O2 saturation greater or equ al to 94%. (4) Hyponatremia (5) DVT prophylaxis Current Visit: Yes Status: Acute Plan to address problem: Patient placed on subcutaneous Lovenox. (6) Full code status Current Visit: Yes Status: Acute Plan to address problem: Patient is a full code. History Interval history: Patient seen and examined reports some improvement. Thinks that he may have contracted this to family. Hospitalist Physical - Physical exam Narrative exam: VITAL SIGNS: Reviewed. GENERAL: The patient appears normally developed, mild lethargy. Vital signs as documented. HEAD: No signs of head trauma. EYES: Pupils are equal. Extraocular motions intact. EARS: Hearing grossly intact. MOUTH: Oropharynx is normal. NECK: No adenopathy, no JVD. CHEST: Chest with diminished breath sounds bilaterally. No wheezes, rales, or rhonchi. CARDIAC: Regular rate and rhythm. S1 and S2, without murmurs, gallops, or rubs. VASCULAR: No Edema. Peripheral pulses normal and equal in all extremities. ABDOMEN: Soft, non tender and non distended. No rebound or guarding, and no masses palpated. Bowel Sounds normal. MUSCULOSKELETAL: Good range of motion of all major joints. Extremities without clubbing, cyanosis or edema. NEUROLOGIC EXAM: Alert and oriented x 3 No focal sensory or strength deficit s. Speech normal. Follows commands. PSYCHIATRIC: Mood normal. SKIN: detail exam as documented in skin assessment - Constitutional Vitals: Temp Pulse Resp BP Pulse Ox 97.9 F 99 H 16 133/69 89 04/29/20 04:46 04/29/20 04:46 04/29/20 08:20 04/29/20 04:46 04/29/20 04:46 General appearance: Present: no acute distress, well-nourished Results - Labs CBC & Chem 7: 04/29/20 05:37 04/29/20 05:37 Labs: Laboratory Last Values WBC 14.4 K/mm3 (4.5-11.0) H 04/29/20 05:37 RBC 5.84 M/mm3 (3.65-5.03) H 04/29/20 05:37 Hgb 15.6 gm/dl (11.8-15.2) H 04/29/20 05:37 Hct 47.0 % (35.5-45.6) H 04/29/20 05:37 MCV 81 fl (84-94) L 04/29/20 05:37 MCH 27 pg (28-32) L 04/29/20 05:37 MCHC 33 % (32-34) 04/29/20 05:37 RDW 13.7 % (13.2-15.2) 04/29/20 05:37 Plt Count 340 K/mm3 (140-440) 04/29/20 05:37 Lymph % (Auto) 7.3 % (13.4-35.0) L 04/28/20 05:19 [place] % (Auto) 3.4 % (0.0-7.3) 04/28/20 05:19 Eos % (Auto) 0.0 % (0.0-4.3) 04/28/20 05:19 Baso % (Auto) 0.1 % (0.0-1.8) 04/28/20 05:19 Lymph # (Auto) 0.6 K/mm3 (1.2-5.4) L 04/28/20 05:19 [place] # (Auto) 0.3 K/mm3 (0.0-0.8) 04/28/20 05:19 Eos # (Auto) 0.0 K/mm3 (0.0-0.4) 04/28/20 05:19 Baso # (Auto) 0.0 K/mm3 (0.0-0.1) 04/28/20 05:19 Seg Neutrophils % 89.2 % (40.0-70.0) H 04/28/20 05:19 Seg Neutrophils # 7.8 K/mm3 (1.8-7.7) H 04/28/20 05:19 PT 17.7 Sec. (12.2-14.9) H 04/28/20 05:19 INR 1.46 (0.87-1.13) H 04/28/20 05:19 D-Dimer 647.16 ng/mlDDU (0-234) H 04/27/20 21:11 Sodium 133 mmol/L (137-145) L 04/29/20 05:37 Potassium 5.0 mmol/L (3.6-5.0) 04/29/20 05:37 Chloride 100.7 mmol/L (98-107) 04/29/20 05:37 Carbon Dioxide 24 mmol/L (22-30) 04/29/20 05:37 Anion Gap 13 mmol/L 04/29/20 05:37 BUN 19 mg/dL (9-20) 04/29/20 05:37 Creatinine 1.3 mg/dL (0.8-1.3) 04/29/20 05:37 Estimated GFR > 60 ml/min 04/29/20 05:37 BUN/Creatinine Ratio 15 % 04/29/20 05:37 Glucose 126 mg/dL (75-100) H 04/29/20 05:37 Lactic Acid 0.90 mmol/L (0.7-2.0) 04/27/20 23:37 Calcium 8.0 mg/dL (8.4-10.2) L 04/29/20 05:37 Ferritin 2654.0 ng/mL (30.0-300.0) H 04/27/20 21:11 Total Bilirubin 1.10 mg/dL (0.1-1.2) 04/27/20 20:55 AST 102 units/L (5-40) H 04/27/20 20:55 ALT 80 units/L (7-56) H 04/27/20 20:55 Alkaline Phosphatase 45 units/L (35-129) 04/27/20 20:55 Lactate Dehydrogenase 923 units/L (91-180) H 04/27/20 21:11 C-Reactive Protein 9.60 mg/dL (0.00-1.30) H 04/27/20 21:11 Total Protein 6.3 g/dL (6.3-8.2) 04/27/20 20:55 Albumin 3.8 g/dL (3.9-5) L 04/27/20 20:55 Albumin/Globulin Ratio 1.5 % 04/27/20 20:55 Procalcitonin 0.29 ng/mL (<0.15) 04/29/20 05:37 Urine Color Yellow (Yellow) 04/27/20 23:36 Urine Turbidity Clear (Clear) 04/27/20 23:36 Urine pH 6.0 (5.0-7.0) 04/27/20 23:36 Ur Specific [place] 1.006 (1.003-1.030) 04/27/20 23:36 Urine Protein 100 mg/dl mg/dL (Negative) 04/27/20 23:36 Urine Glucose (UA) Neg mg/dL (Negative) 04/27/20 23:36 Urine Ketones Neg mg/dL (Negative) 04/27/20 23:36 Urine Blood Sm (Negative) 04/27/20 23:36 Urine Nitrite Neg (Negative) 04/27/20 23:36 Urine Bilirubin Neg (Negative) 04/27/20 23:36 Urine Urobilinogen < 2.0 mg/dL (<2.0) 04/27/20 23:36 Ur Leukocyte Esterase Neg (Negative) 04/27/20 23:36 Urine WBC (Auto) 2.0 /HPF (0.0-6.0) 04/27/20 23:36 Urine RBC (Auto) 2.0 /HPF (0.0-6.0) 04/27/20 23:36 Microbiology: Microbiology 04/27/20 21:15 Peripheral/Venous Blood Culture - Preliminary NO GROWTH AFTER 24 HOURS 04/27/20 21:11 Peripheral/Venous Blood Culture - Preliminary NO GROWTH AFTER 24 HOURS Espinosa/IV: Voiding Method Toilet IV Catheter Type [Right INT / Saline Lock Forearm] Active Medications - Current Medications Current Medications: Generic Name Dose Route Start Last Admin Trade Name Freq PRN Reason Stop Dose Admin Acetaminophen 650 mg 04/27/20 22:34 Acetaminophen 325 Mg Tab PO Q4H PRN Pain MILD(1-3)/Fever >100.5/MCKEON Ascorbic Acid 1,000 mg 04/28/20 13:00 04/29/20 10:08 Ascorbic Acid 500 Mg Tab PO 1,000 mg BID MATILDA Administration Azithromycin 500 mg 04/30/20 10:00 Azithromycin 250 Mg Tab PO 05/01/20 12:00 QDAY MATILDA Cholecalciferol 5,000 unit 04/28/20 13:00 04/29/20 10:08 Cholecalciferol (Vit D3) 5,000 Unit Tab PO 5,000 unit DAILY MATILDA Administration Dexamethasone 6 mg 04/28/20 10:00 04/29/20 10:08 Dexamethasone 4 Mg/Ml Vial IV 05/06/20 10:01 6 mg Q24HR MATILDA Administration Enoxaparin Sodium 40 mg 04/28/20 22:00 04/28/20 22:23 Enoxaparin 40 Mg/0.4 Ml Inj SUB-Q 40 mg QDAY@2200 MATILDA Administration Protocol Sodium Chloride 1,000 mls @ 75 mls/hr 04/27/20 22:45 04/29/20 02:32 Nacl 0.9% 1000 Ml IV 75 mls/hr DIRECT MATILDA Administration Ceftriaxone Sodium 2 gm in 100 mls @ 200 mls/hr 04/28/20 10:00 04/29/20 10:09 Rocephin/Ns 2 Gm/100 Ml IV 200 mls/hr Q24HR MATILDA Administration Protocol REMDESIVIR 100 mg/ Sodium 250 mls @ 500 mls/hr 04/29/20 21:00 Chloride IV 05/02/20 21:29 Q24HR@2100 MATILDA Magnesium Hydroxide 30 ml 04/27/20 22:34 Magnesium Hydroxide (Mom) Oral Liqd Udc PO Q4H PRN Constipation Morphine Sulfate 2 mg 04/27/20 22:34 Morphine 2 Mg/1 Ml Inj IV Q4H PRN Pain, Moderate (4-6) Ondansetron HCl 4 mg 04/27/20 22:34 Ondansetron 4 Mg/2 Ml Inj IV Q8H PRN Nausea And Vomiting Sodium Chloride 10 ml 04/28/20 10:00 04/29/20 11:12 Sodium Chloride 0.9% 10 Ml Flush Syringe IV 10 ml BID MATILDA Administration Sodium Chloride 10 ml 04/27/20 22:34 Sodium Chloride 0.9% 10 Ml Flush Syringe IV PRN PRN LINE FLUSH Sodium Chloride 50 ml 04/28/20 17:30 04/28/20 18:43 Sodium Chloride 0.9% 50 Ml Ivpb IV 05/02/20 21:01 50 ml Q24HR@2100 MATILDA Administration Zinc Sulfate 220 mg 04/28/20 13:00 04/29/20 10:08 Zinc Sulfate 220 Mg Cap PO 220 mg QDAY MATILDA Administration
--- NOTE | 2020-04-29 14:35 | Progress Note ---
Assessment and Plan Cultures: SARS CoV2 PCR: Positive as outpatient. 04/27/2020 blood culture: In process A/P: 45-year-old male with no significant past medical history, tested positive for COVID-19 as an outpatient: #Bilateral pneumonia: Secondary to COVID-19. Elevated inflammatory markers. Patient tested positive as an outpatient. #Acute hypoxic respiratory failure: On 3 L/min #Transaminitis: Likely secondary to COVID-19 Recs: -IV/PO Dexamethasone 6 mg daily x 10 days -Stopped empiric antibiotics -Leukocytosis likely secondary to steroids -Remdesivir ordered due to hypoxia. Day 2 of 5. -prophylactic anticoagulation based on d-dimer per hospital protocol -trend ferritin, LDH, d-dimer, CRP every 2-3 days for risk stratification and to assess disease progression Rom Santoyo MD [facility] ([facility] O: [phone] F: [phone] Subjective Date of service: 04/29/20 Interval history: Afebrile over last 24 hours with a white count of 14.4. Objective - Exam Narrative Exam: Physical exam deferred due to PPE conservation strategy. Please refer to primary team's note. - Constitutional Vitals: Vital Signs Temp Pulse Resp BP Pulse Ox 97.6 F 86 18 131/79 93 04/29/20 10:54 04/29/20 10:54 04/29/20 10:54 04/29/20 10:54 04/29/20 10:54 Temperature -Last 24 Hours Temperature 97.6 F Temperature 97.9 F Temperature 98.6 F Temperature 98.6 F - Labs CBC & Chem 7: 04/29/20 05:37 04/29/20 05:37 Labs: Abnormal lab results 04/29/20 04/29/20 Range/Units 05:37 05:37 WBC 14.4 H (4.5-11.0) K/mm3 RBC 5.84 H (3.65-5.03) M/mm3 Hgb 15.6 H (11.8-15.2) gm/dl Hct 47.0 H (35.5-45.6) % MCV 81 L (84-94) fl MCH 27 L (28-32) pg Sodium 133 L (137-145) mmol/L Glucose 126 H (75-100) mg/dL Calcium 8.0 L (8.4-10.2) mg/dL
[2020-04-29] MEDS: REMDESIVIR 100 MG in SODIUM CHLORIDE 0.9% 250ML 250 ML IV SCH (21:53)
[2020-04-29] MEDS: ENOXAPARIN 40 MG/0.4 ML INJ SUB-Q SCH (21:53)
[2020-04-29] MEDS: SODIUM CHLORIDE 0.9% 50 ML IVPB IV SCH (21:53)
[2020-04-30 06:58] LABS: Alanine Aminotransferase 68 units/L (7-56); Albumin 2.9 g/dL (3.9-5); BUN/Creatinine Ratio 15; Blood Urea Nitrogen 18 mg/dL (9-20); Calcium 8.4 mg/dL (8.4-10.2); Hemolysis Index 20
[2020-04-30 06:59] LABS: Bilirubin,Direct < 0.2 mg/dL (0-0.2)
--- NOTE | 2020-04-30 09:36 | Progress Note ---
Assessment and Plan Assessment and plan: 45-year-old male with no significant past medical history presents to the emergency room today complaining of cough, fever and chills, generalized body aches and pain and difficulty breathing. Symptoms have been ongoing for about 10 days. Patient indicates that he tested positive for COVID-19 on April 22, 2020 and since then he has been feeling fatigued and has been having intermittent fever. He has taken some Tylenol which helps with the fever for a brief period of time. He has had decreased appetite but denies any nausea vomiting and no diarrhea denies any loss of smell, no abdominal pain. Patient denies any sick contacts and no recent travel. Patient denies any contact with anyone with COVID-19. Upon arrival in the emergency room patient was hypoxic. Evaluation in the emergency room today chest x-ray shows bilateral infiltrates. Patient being admitted for pneumonia and will rule out COVID-19. 04/28: Chest x-ray read by me shows extensive bilateral infiltrates. Patient reports clinical improvement. He reports that he was tested positive as documented in the H&P. Will await ID evaluation for possible remdesivir. Obtain pre and post oxygen saturation. Denies any underlying medical condition. Will initiate some vitamins for supplementation and immune system use. Monitor inflammatory markers 04/29: Still awaiting Covid test. While he is improving would like to give it 1 more day. Will do home O2 evaluation as he still with exertional dyspnea. Continue steroids and remdesivir as prescribed. --Pneumonia Current Visit: Yes Status: Acute Plan to address problem: Patient placed on empiric IV antibiotics. We await culture results. --Positive COVID-19 Current Visit: Yes Status: Acute Plan to address problem: Patient placed on isolation precautions. Consult placed to infectious disease for evaluation. Meanwhile patient placed on IV steroid. --Hypoxia/on nasal cannula oxygen Current Visit: Yes Status: Acute Plan to address problem: Possibly secondary to the pneumonia. We will keep O2 saturation greater or equal to 94%. Home oxygen evaluation, resting room air, ambulatory room air O2 sats Prior to discharge Encouraged to sleep in prone position --Hyponatremia; resolved Closely monitor electrolytes, follow sodium levels --DVT prophylaxis Current Visit: Yes Status: Acute Plan to address problem: Patient placed on subcutaneous Lovenox. -- Full code status Current Visit: Yes Status: Acute Plan to address problem: Patient is a full code. We will closely monitor the patient and adjust management as needed ID evaluation and recommendations noted and appreciated Ambulate as tolerated Possible discharge home tomorrow after evaluating for home oxygen need Case management to assist with discharge planning And of care reviewed with the patient and his nurse Discussed in detail with the patient his condition Tests and reports, treatment and discharge planning Home O2 evaluation and possible discharge tomorrow if stable I answered all his questions Continue current management History Interval history: I have seen and examined the patient at the bedside Patient's chart and medications reviewed Isolation precautions and PPE protocols strictly followed Patient feels slightly better Complains of mild shortness of breath Vital signs noted Hospitalist Physical - Constitutional Vitals: Temp Pulse Resp BP Pulse Ox 98 F 76 18 114/75 97 04/30/20 07:00 04/30/20 07:00 04/30/20 08:55 04/30/20 07:00 04/30/20 07:00 General appearance: Present: no acute distress, well-nourished - EENT Eyes: Present: PERRL, EOM intact - Neck Neck: Present: supple, normal ROM - Respiratory Respiratory effort: normal Respiratory: bilateral: diminished, rhonchi, negative: rales, wheezing - Cardiovascular Rhythm: regular Heart Sounds: Present: S1 & S2 - Extremities Extremities: no ischemia, No edema - Abdominal General gastrointestinal: soft, non-tender, non-distended, normal bowel sounds - Integumentary Integumentary: Present: clear, warm - Psychiatric Psychiatric: appropriate mood/affect, cooperative - Neurologic Neurologic: CNII-XII intact, moves all extremities Results - Labs CBC & Chem 7: 04/29/20 05:37 04/30/20 05:13 Labs: Laboratory Last Values WBC 14.4 K/mm3 (4.5-11.0) H 04/29/20 05:37 RBC 5.84 M/mm3 (3.65-5.03) H 04/29/20 05:37 Hgb 15.6 gm/dl (11.8-15.2) H 04/29/20 05:37 Hct 47.0 % (35.5-45.6) H 04/29/20 05:37 MCV 81 fl (84-94) L 04/29/20 05:37 MCH 27 pg (28-32) L 04/29/20 05:37 MCHC 33 % (32-34) 04/29/20 05:37 RDW 13.7 % (13.2-15.2) 04/29/20 05:37 Plt Count 340 K/mm3 (140-440) 04/29/20 05:37 Lymph % (Auto) 7.3 % (13.4-35.0) L 04/28/20 05:19 [place] % (Auto) 3.4 % (0.0-7.3) 04/28/20 05:19 Eos % (Auto) 0.0 % (0.0-4.3) 04/28/20 05:19 Baso % (Auto) 0.1 % (0.0-1.8) 04/28/20 05:19 Lymph # (Auto) 0.6 K/mm3 (1.2-5.4) L 04/28/20 05:19 [place] # (Auto) 0.3 K/mm3 (0.0-0.8) 04/28/20 05:19 Eos # (Auto) 0.0 K/mm3 (0.0-0.4) 04/28/20 05:19 Baso # (Auto) 0.0 K/mm3 (0.0-0.1) 04/28/20 05:19 Seg Neutrophils % 89.2 % (40.0-70.0) H 04/28/20 05:19 Seg Neutrophils # 7.8 K/mm3 (1.8-7.7) H 04/28/20 05:19 PT 17.7 Sec. (12.2-14.9) H 04/28/20 05:19 INR 1.46 (0.87-1.13) H 04/28/20 05:19 D-Dimer 647.16 ng/mlDDU (0-234) H 04/27/20 21:11 Sodium 137 mmol/L (137-145) 04/30/20 05:13 Potassium 4.3 mmol/L (3.6-5.0) 04/30/20 05:13 Chloride 104.1 mmol/L (98-107) 04/30/20 05:13 Carbon Dioxide 25 mmol/L (22-30) 04/30/20 05:13 Anion Gap 12 mmol/L 04/30/20 05:13 BUN 18 mg/dL (9-20) 04/30/20 05:13 Creatinine 1.2 mg/dL (0.8-1.3) 04/30/20 05:13 Estimated GFR > 60 ml/min 04/30/20 05:13 BUN/Creatinine Ratio 15 % 04/30/20 05:13 Glucose 107 mg/dL (75-100) H 04/30/20 05:13 Lactic Acid 0.90 mmol/L (0.7-2.0) 04/27/20 23:37 Calcium 8.4 mg/dL (8.4-10.2) 04/30/20 05:13 Ferritin 2654.0 ng/mL (30.0-300.0) H 04/27/20 21:11 Total Bilirubin 0.40 mg/dL (0.1-1.2) 04/30/20 05:13 Direct Bilirubin < 0.2 mg/dL (0-0.2) 04/30/20 05:13 Indirect Bilirubin 0.2 mg/dL 04/30/20 05:13 AST 51 units/L (5-40) H 04/30/20 05:13 ALT 68 units/L (7-56) H 04/30/20 05:13 Alkaline Phosphatase 39 units/L (35-129) 04/30/20 05:13 Lactate Dehydrogenase 923 units/L (91-180) H 04/27/20 21:11 C-Reactive Protein 9.60 mg/dL (0.00-1.30) H 04/27/20 21:11 Total Protein 5.5 g/dL (6.3-8.2) L 04/30/20 05:13 Albumin 2.9 g/dL (3.9-5) L 04/30/20 05:13 Albumin/Globulin Ratio 1.1 % 04/30/20 05:13 Procalcitonin 0.29 ng/mL (<0.15) 04/29/20 05:37 Urine Color Yellow (Yellow) 04/27/20 23:36 Urine Turbidity Clear (Clear) 04/27/20 23:36 Urine pH 6.0 (5.0-7.0) 04/27/20 23:36 Ur Specific [place] 1.006 (1.003-1.030) 04/27/20 23:36 Urine Protein 100 mg/dl mg/dL (Negative) 04/27/20 23:36 Urine Glucose (UA) Neg mg/dL (Negative) 04/27/20 23:36 Urine Ketones Neg mg/dL (Negative) 04/27/20 23:36 Urine Blood Sm (Negative) 04/27/20 23:36 Urine Nitrite Neg (Negative) 04/27/20 23:36 Urine Bilirubin Neg (Negative) 04/27/20 23:36 Urine Urobilinogen < 2.0 mg/dL (<2.0) 04/27/20 23:36 Ur Leukocyte Esterase Neg (Negative) 04/27/20 23:36 Urine WBC (Auto) 2.0 /HPF (0.0-6.0) 04/27/20 23:36 Urine RBC (Auto) 2.0 /HPF (0.0-6.0) 04/27/20 23:36 Coronavirus (PCR) Positive (Negative) A 04/29/20 Unknown Microbiology: Microbiology 04/27/20 21:15 Peripheral/Venous Blood Culture - Preliminary NO GROWTH AFTER 48 HOURS 04/27/20 21:11 Peripheral/Venous Blood Culture - Preliminary NO GROWTH AFTER 48 HOURS Espinosa/IV: Voiding Method Toilet IV Catheter Type [Right Peripheral IV Forearm] Active Medications - Current Medications Current Medications: Generic Name Dose Route Start Last Admin Trade Name Freq PRN Reason Stop Dose Admin Acetaminophen 650 mg 04/27/20 22:34 Acetaminophen 325 Mg Tab PO Q4H PRN Pain MILD(1-3)/Fever >100.5/MCKEON Ascorbic Acid 1,000 mg 04/28/20 13:00 04/29/20 21:53 Ascorbic Acid 500 Mg Tab PO 1,000 mg BID MATILDA Administration Cholecalciferol 5,000 unit 04/28/20 13:00 04/29/20 10:08 Cholecalciferol (Vit D3) 5,000 Unit Tab PO 5,000 unit DAILY MATILDA Administration Dexamethasone 6 mg 04/28/20 10:00 04/29/20 10:08 Dexamethasone 4 Mg/Ml Vial IV 05/06/20 10:01 6 mg Q24HR MATILDA Administration Enoxaparin Sodium 40 mg 04/28/20 22:00 04/29/20 21:53 Enoxaparin 40 Mg/0.4 Ml Inj SUB-Q 40 mg QDAY@2200 MATILDA Administration Protocol Sodium Chloride 1,000 mls @ 75 mls/hr 04/27/20 22:45 04/29/20 02:32 Nacl 0.9% 1000 Ml IV 75 mls/hr DIRECT MATILDA Administration REMDESIVIR 100 mg/ Sodium 250 mls @ 500 mls/hr 04/29/20 21:00 04/29/20 21:53 Chloride IV 05/02/20 21:29 500 mls/hr Q24HR@2100 MATILDA Administration Magnesium Hydroxide 30 ml 04/27/20 22:34 Magnesium Hydroxide (Mom) Oral Liqd Udc PO Q4H PRN Constipation Morphine Sulfate 2 mg 04/27/20 22:34 Morphine 2 Mg/1 Ml Inj IV Q4H PRN Pain, Moderate (4-6) Ondansetron HCl 4 mg 04/27/20 22:34 Ondansetron 4 Mg/2 Ml Inj IV Q8H PRN Nausea And Vomiting Sodium Chloride 10 ml 04/28/20 10:00 04/29/20 21:53 Sodium Chloride 0.9% 10 Ml Flush Syringe IV 10 ml BID MATILDA Administration Sodium Chloride 10 ml 04/27/20 22:34 Sodium Chloride 0.9% 10 Ml Flush Syringe IV PRN PRN LINE FLUSH Sodium Chloride 50 ml 04/28/20 17:30 04/29/20 21:53 Sodium Chloride 0.9% 50 Ml Ivpb IV 05/02/20 21:01 50 ml Q24HR@2100 MATILDA Administration Zinc Sulfate 220 mg 04/28/20 13:00 04/29/20 10:08 Zinc Sulfate 220 Mg Cap PO 220 mg QDAY MATILDA Administration
[2020-04-30] MEDS ORDERED: AZITHROMYCIN 250 MG TAB PO SCH (10:00)
[2020-04-30] MEDS: ASCORBIC ACID 500 MG TAB PO SCH ×2 (10:59→21:16)
[2020-04-30] MEDS: CHOLECALCIFEROL (VIT D3) 5,000 UNIT TAB PO SCH (10:59)
[2020-04-30] MEDS: ZINC SULFATE 220 MG CAP PO SCH (10:59)
[2020-04-30] MEDS: dexAMETHasone 4 MG/ML VIAL IV SCH (11:07)
--- NOTE | 2020-04-30 15:48 | Progress Note ---
Assessment and Plan Cultures: SARS CoV2 PCR: Positive as outpatient. 04/27/2020 blood culture: In process A/P: 45-year-old male with no significant past medical history, tested positive for COVID-19 as an outpatient: #Bilateral pneumonia: Secondary to COVID-19. Elevated inflammatory markers. Patient tested positive as an outpatient. #Acute hypoxic respiratory failure: On 3 L/min #Transaminitis: Likely secondary to COVID-19 Recs: -IV/PO Dexamethasone 6 mg daily x 10 days -Stopped empiric antibiotics -Leukocytosis likely secondary to steroids -Remdesivir ordered due to hypoxia. Day 3 of 5. -prophylactic anticoagulation based on d-dimer per hospital protocol -trend ferritin, LDH, d-dimer, CRP every 2-3 days for risk stratification and to assess disease progression Okay to discharge when improved, consider 6-minute walk test prior to discharge. No need to complete all 5 days of remdesivir if not required. Infectious disease signed off at this time. Please call with questions. Rom Santoyo MD [facility] O: [phone] F: [phone] Subjective Date of service: 04/30/20 Interval history: Afebrile, no acute change present. Objective - Exam Narrative Exam: Physical exam deferred due to PPE conservation strategy. Please refer to primary team's note. - Constitutional Vitals: Vital Signs Temp Pulse Resp BP Pulse Ox 98.3 F 75 20 132/81 92 04/30/20 12:32 04/30/20 12:32 04/30/20 12:32 04/30/20 12:32 04/30/20 12:32 Temperature -Last 24 Hours Temperature 98.3 F Temperature 98 F Temperature 97.3 F Temperature 98.5 F - Labs CBC & Chem 7: 04/29/20 05:37 04/30/20 05:13 Labs: Abnormal lab results 04/30/20 Range/Units 05:13 Glucose 107 H (75-100) mg/dL AST 51 H (5-40) units/L ALT 68 H (7-56) units/L Total Protein 5.5 L (6.3-8.2) g/dL Albumin 2.9 L (3.9-5) g/dL
[2020-04-30] MEDS: SODIUM CHLORIDE 0.9% 50 ML IVPB IV SCH (21:16)
[2020-04-30] MEDS: REMDESIVIR 100 MG in SODIUM CHLORIDE 0.9% 250ML 250 ML IV SCH (21:16)
[2020-04-30] MEDS: ENOXAPARIN 40 MG/0.4 ML INJ SUB-Q SCH (21:17)
[2020-05-01] MEDS ORDERED: DEXAMETHASONE 4 MG TAB PO SCH (10:00)
[2020-05-01 10:23] LABS: BUN/Creatinine Ratio 14; Blood Urea Nitrogen 17 mg/dL (9-20); Calcium 8.7 mg/dL (8.4-10.2); Hemolysis Index 12
[2020-05-01] MEDS: CHOLECALCIFEROL (VIT D3) 5,000 UNIT TAB PO SCH (10:38)
[2020-05-01] MEDS: ZINC SULFATE 220 MG CAP PO SCH (10:38)
[2020-05-01] MEDS: ASCORBIC ACID 500 MG TAB PO SCH (10:38)
[2020-05-01 10:40] LABS: Alanine Aminotransferase 89 units/L (7-56); Albumin 3.5 g/dL (3.9-5)
[2020-05-01 10:42] LABS: Bilirubin,Direct < 0.2 mg/dL (0-0.2)
[2020-05-01 13:21] VITALS: BP 146/95
--- NOTE | 2020-05-01 14:56 | Discharge Summary ---
Providers - Providers Date of Admission: 04/29/20 07:59 Date of discharge: 05/01/20 Attending physician: RACHEL DICKENS 04/27/20 22:34 Consult to Physician [CONS] Routine Comment: Consulting Provider: RICARDA CAMPBELL Physician Instructions: Reason For Exam: Pneumonia, Hypoxia Primary care physician: [facility] MD [facility] Hospitalization Condition: Fair Disposition: DC-01 TO HOME OR SELFCARE Time spent for discharge: 32 min Core Measure Documentation - Palliative Care Palliative Care/ Comfort Measures: Not Applicable - Core Measures Any of the following diagnoses?: none Exam - Constitutional Vitals: Temp Pulse Resp BP Pulse Ox 98.2 F 71 22 146/95 98 05/01/20 12:31 05/01/20 12:31 05/01/20 12:31 05/01/20 12:31 05/01/20 12:31 General appearance: Present: no acute distress, well-nourished - EENT Eyes: Present: PERRL, EOM intact - Neck Neck: Present: supple, normal ROM - Respiratory Respiratory effort: normal Respiratory: bilateral: diminished, rhonchi, negative: rales, wheezing - Cardiovascular Rhythm: regular Heart Sounds: Present: S1 & S2 - Extremities Extremities: no ischemia, No edema - Abdominal General gastrointestinal: Present: soft, non-tender, non-distended, normal bowel sounds - Integumentary Integumentary: Present: clear, warm - Musculoskeletal Musculoskeletal: strength equal bilaterally, generalized weakness - Psychiatric Psychiatric: appropriate mood/affect, cooperative - Neurologic Neurologic: moves all extremities Plan Activity: advance as tolerated Diet: regular Additional Instructions: Advised to strictly follow isolation precautions, self quarantine and Covid protocols as instructed by the discharge nurse. If you have worsening symptoms contact MD or go to emergency room. Advised to follow primary care physician in 3 to 7 days. Patient's resting room air O2 sats and ambulatory room air O2 sats are more than 94 to 95%, no indication for home oxygen at this point Follow up with: AIDA GRACIA MD [Primary Care Provider] - 3-5 Days Forms: Work/School Release Form Prescriptions: Dexamethasone 6 mg PO DAILY #5 tablet Ascorbic Acid [Vitamin C] 1,000 mg PO BID #30 tablet Cholecalciferol (Vitamin D3) [Vitamin D3] 5,000 unit PO DAILY #14 tablet Zinc Sulfate 220 mg PO QDAY #14 capsule
== END 2020-05-01 17:50 | disposition home or self-care (01) | DRG 177 ==
LOC: ED 20:17 → 3A 23:43 → OBSVTOIN 04-29 07:59
PROVIDERS: ADMIT Internal Medicine Geriatric Medicine; ATTEND Internal Medicine
PROC: XW033E5 Introduction of Remdesivir Anti-infective into Peripheral Vein, Percutaneous Approach, New Technology Group 5 (ICD-10-PCS; principal; 2020-04-28)
DX: U07.1 COVID-19 (principal); J96.01 Acute respiratory failure with hypoxia; J12.82 Pneumonia due to coronavirus disease 2019; E87.1 Hypo-osmolality and hyponatremia; R74.01 Elevation of levels of liver transaminase levels; Z79.899 Other long term (current) drug therapy
CPT/HCPCS: 36415; 71046; 80048; 80053; 80076; 81001; 82140; 82728; 82947; 83615; 84145; 85025; 85027; 85379; 85610; 86140; 87040; 87086; G0378; J0456; J0696; J1100; J1650; J7030; J7050; J8540; U0003